=== PATIENT | female | born 1970 | race Caucasian/White ===

== ENCOUNTER 2017-09-01 11:41 | Emergency (ER) | payer BC, OTHER ==
[2017-09-01 12:39] LABS: Bilirubin Negative (Negative); Blood, Urine Negative (Negative); Clarity CLOUDY (Clear); Glucose, Urine (Dipstick) Negative (Negative); Leukocyte Negative (Negative); Nitrite Negative (Negative); Protein, Urine (Dipstick) Negative (Neg-Trace); Specific Gravity, Urine 1.015 (1.002-1.036); Urobilinogen 0.2 mg/dL (0.2-1.0); pH, Urine 7.5 (5.0-9.0)
[2017-09-01 12:40] LABS: Pregnancy Test - Urine (BHCG) Negative (Negative); Pregu Control Background? CLEAR/WHITE (CLR/WHITE); Pregu Control Bar Appear? YES (CONTROL BAR); Specific Gravity 1.015 (1.002-1.036)
[2017-09-01 12:58] LABS: #Basophils 0.1 thou/uL (0.0-0.2); #Eosinphils 0.1 thou/uL (0.0-0.7); #Lymphocytes 1.6 thou/uL (1.20-3.40); #Monocytes 0.6 thou/uL (0.11-0.59); #Neutrophils 3.1 thou/uL (1.40-6.50); %Eosinophils 2.2 % (0.0-10.0); %Lymphocytes 29.2 % (21.0-51.0); %Monocytes 11.4 % (0.0-10.0); %Neutrophils 56.3 % (42.0-75.0); Hemoglobin 14.8 g/dL (12.0-16.0); Mean Corpuscular HGB CONC 34.4 g/dL (32.0-36.0); Mean Corpuscular Volume 93.1 fl (81.0-99.0); Mean Platelet Volume 7.7 fL (7.4-10.4); Platelet Count 230 thou/uL (130-400); RBC Distribution Width 11.1 % (11.5-14.5); Red Blood Cell (RBC) Count 4.62 mill/uL (4.20-5.40); White Blood Cell (WBC) Count 5.5 thou/uL (4.8-10.8)
[2017-09-01 13:27] LABS: ALT (SGPT) 12 U/L (8-55); AST (SGOT) 16 U/L (5-34); Albumin 4.3 g/dL (3.5-5.0); Alkaline Phosphatase 87 U/L (40-150); Anion Gap 8 mmol/L (10-20); BUN (Urea Nitrogen) 9 mg/dL (7.0-18.7); Bilirubin, Total 0.8 mg/dL (0.2-1.2); Calc. Creatinine Clearance 0 mL/min (70-130); Calcium 9.6 mg/dL (7.8-10.44); Carbon Dioxide 28 mmol/L (22-29); Chloride 102 mmol/L (98-107); Estimated GFR-MDRD 84; Globulin 3.2 g/dL (2.4-3.5); Glucose 91 mg/dL (70-105); Lipase 17 U/L (8-78); Potassium 3.8 mmol/L (3.5-5.1); Protein, Total 7.5 g/dL (6.0-8.3); Sodium 134 mmol/L (136-145)
[2017-09-01] MEDS ORDERED: Ketorolac Tromethamine 30 MG/ML VIAL ONE (14:14)
--- NOTE | 2017-09-01 15:41 | CT ---
CT ABDOMEN AND PELVIS WITHOUT CONTRAST: Date: 09/01/17 Multiple axial tomograms obtained through abdomen and pelvis without IV enhancement. HISTORY: Lower abdominal pain. FINDINGS: Lung bases clear. Liver, spleen, and pancreas are unremarkable. Adrenal glands and kidneys are unremarkable. No hydrone phrosis. No urinary tract calculus or obstruction. Urinary bladder is distended and appears unremarka ble. Small bowel loops appear normal. Images through the pelvis show evidence of hysterectomy. Aorta is normal caliber. Appendix appears no rmal. IMPRESSION: No evidence of acute process. POS: PEYMANH
== END 2017-09-01 16:30 | disposition home or self-care (01) ==
LOC: ERS 11:41
DX: R10.30 Lower abdominal pain, unspecified (principal)
CPT/HCPCS: 74176; 80053; 81003; 81025; 83690; 85025; 96374; 96375; J1885; J2270

== ENCOUNTER 2019-03-08 07:28 | Outpatient (CLI) | payer OTHER ==
--- NOTE | 2019-03-08 08:08 | ULT ---
ABDOMINAL ULTRASOUND HISTORY: Epigastric abdominal pain FINDINGS: Liver: Within normal limits. Gallbladder: No gallbladder calculi are visualized. There is no gallbladder wall thickening or perich olecystic fluid. Common duct: Common duct is at the upper limits of normal in caliber measuring 0.6 cm in diameter. Pancreas: The limited visualized pancreas demonstrates a normal sonographic appearance. IVC: Limited visualized IVC has a normal sonographic appearance. Aorta: The aorta is normal in caliber. Spleen: Within normal limits. Kidneys: Kidneys demonstrate a normal sonographic appearance bilaterally with the right kidney measur ing 10.1 cm in length, and the left kidney measures 9.8 cm in length. IMPRESSION: Abdominal ultrasound is within normal limits. No gallbladder calculi are seen
== END 2019-03-08 07:29 | disposition home or self-care (01) ==
LOC: ULT 07:28
PROVIDERS: ATTEND Family Medicine
DX: R10.13 Epigastric pain (principal)
CPT/HCPCS: 76700

== ENCOUNTER 2019-04-29 13:31 | Outpatient (CLI) | payer OTHER ==
--- NOTE | 2019-04-29 14:16 | MMO ---
Bilateral MAMMO Bilat Screen [facility]. CLINICAL HISTORY: Patient is 48 years old and is seen for screening. The patient has the following family history of breast cancer: paternal grandmother. The patient has no personal history of cancer. VIEWS: The views performed were: bilateral craniocaudal with tomosynthesis and bilateral mediolateral oblique with tomosynthesis. FILMS COMPARED: The present examination has been compared to prior imaging studies performed at [facility] on 05/05/2008, and at [facility] on 05/25/2014. This study has been interpreted with the assistance of computer-aided detection. MAMMOGRAM FINDINGS: The breasts are heterogeneously dense, which could obscure a lesion on mammography. Normal implants are present. There are no suspicious masses, suspicious calcifications, or new areas of architectural distortion. IMPRESSION: THERE IS NO MAMMOGRAPHIC EVIDENCE OF MALIGNANCY. A ROUTINE FOLLOW-UP MAMMOGRAM IN 1 YEAR IS RECOMMENDED. THE RESULTS OF THIS EXAM WERE SENT TO THE PATIENT. ACR BI-RADS Category 2 - Benign finding MAMMOGRAPHY NOTE: 1. A negative mammogram report should not delay a biopsy if a dominant of clinically suspicious mass is present. 2. Approximately 10% to 15% of breast cancers are not detected by mammography. 3. Adenosis and dense breasts may obscure an underlying neoplasm. Reported by: BRYANT JUAREZ MD Electonically Signed: [id number]
== END 2019-04-29 13:32 | disposition home or self-care (01) ==
LOC: BICMAMMO 13:31
PROVIDERS: ATTEND Family Medicine
DX: Z12.31 Encounter for screening mammogram for malignant neoplasm of breast (principal); Z80.3 Family history of malignant neoplasm of breast
CPT/HCPCS: 77063; 77067

== ENCOUNTER 2019-09-22 08:16 | Outpatient (CLI) | payer OTHER ==
--- NOTE | 2019-09-22 09:30 | MRI ---
MRI cervical spine noncontrast: DATE: 09/22/2019 HISTORY: 48-year-old female with ICD-10: "M 54.12 cervical radiculitis" Cervicalgia and right cervical radiculopathy FINDINGS: Slight reversal of curvature. Generous caliber of spinal canal. No neural foraminal stenosis at any l evel. Cervical spinal cord is normal in size and signal. No focal disc herniation. No nerve root impingement or cord impingement at any level. Mild scattered bilateral degenerative facet changes at certain levels. Normal bone marrow signal. Vertebral body heights are maintained. No high-grade disc space narrowing at any level. Unremarkable perivertebral spaces. IMPRESSION: 1. Slight reversal of curvature. 2. Otherwise essentially normal.
== END 2019-09-22 08:17 | disposition home or self-care (01) ==
LOC: TBSIIMAG 08:16
PROVIDERS: ATTEND Family Medicine
DX: M54.12 Radiculopathy, cervical region (principal); M43.9 Deforming dorsopathy, unspecified
CPT/HCPCS: 72141

== ENCOUNTER 2020-01-02 07:01 | Outpatient (CLI) | payer OTHER ==
--- NOTE | 2020-01-02 07:44 | ULT ---
ULTRASOUND RETROPERITONEUM COMPLETE: (RENAL) DATE: 01/02/2020 HISTORY: 49-year-old female with urinary tract infection FINDINGS: The right kidney measures 10 x 4.5 x 3.5 cm. The left kidney measures 9 x 4.5 x 4.5 cm. Both kidneys have normal parenchymal echogenicity. There is no hydronephrosis. No moderate sized or large renal cystic or solid renal lesion is identified. Cursory images of the urinary bladder demonstrate 4 mm mural thickness thickness, which is nonspecifi c, and could be due to incomplete distention (20 mL). Patient recently voided prior to ultrasound. IMPRESSION: No hydronephrosis
== END 2020-01-02 07:02 | disposition home or self-care (01) ==
LOC: BICULT 07:01
PROVIDERS: ATTEND Family Medicine
DX: N39.0 Urinary tract infection, site not specified (principal)
CPT/HCPCS: 76770

== ENCOUNTER 2022-01-24 12:47 | Outpatient (CLI) | payer OTHER | END 2022-01-24 12:48 | disposition home or self-care (01) | LOC: LABBT 12:47 | PROVIDERS: ATTEND Internal Medicine Gastroenterology | DX: Z20.822 Contact with and (suspected) exposure to COVID-19 (principal) | CPT/HCPCS: 87811 ==

== ENCOUNTER → 2022-01-29 | Day surgery (SDC) | payer OTHER ==
[~2022-01-29] MED LIST: Lidocaine 2% PF 5 ML VIAL ONE
== END | disposition home or self-care (01) ==
LOC: SDC 07:20
PROVIDERS: ATTEND Internal Medicine Gastroenterology
DX: K21.9 Gastro-esophageal reflux disease without esophagitis (principal); Z88.1 Allergy status to other antibiotic agents; Z91.018 Allergy to other foods; Z91.048 Other nonmedicinal substance allergy status
CPT/HCPCS: 91010; 91034; J2001

== ENCOUNTER 2024-09-08 09:00 | Outpatient (CLI) | payer OTHER | END 2024-09-08 09:01 | disposition home or self-care (01) | LOC: BICMAMMO 09:00 | PROVIDERS: ATTEND Family Medicine | DX: Z12.31 Encounter for screening mammogram for malignant neoplasm of breast (principal); Z80.3 Family history of malignant neoplasm of breast; Z98.82 Breast implant status | CPT/HCPCS: 77063; 77067 ==